=== PATIENT | female | born 1950 | race Caucasian/White ===

== ENCOUNTER 2024-10-03 06:59 | Emergency (ER) | payer OTHER, SELFPAY ==
[2024-10-03] VITALS (13 sets, daily range): BP systolic 138–209; BP diastolic 55–108; PULSE 60–104; RESP 15–97; TEMP 36.5; O2SAT 96–100; BMI 28.7
--- NOTE | 2024-10-03 07:18 | EDNOTE_ITS ---
ED General RME/HPI General Chief complaint: Dizziness Stated complaint: DIZZINESS Time Seen by Provider: 10/03/24 07:16 Arrival date/time: 10/03/24 06:59 RME / HPI RME / HPI narrative: See [facility] Related Data Allergies Allergy/AdvReac Type Severity Reaction Status Date / Time No Known Allergies Allergy Verified 10/03/24 07:18 Review of Systems Review of Systems Systems Reviewed: All systems reviewed, normal except as documented ED Exam Narrative Physical exam: Physical Exam GENERAL: AAOx3, lethargic HEENT: Dry mucosa. Eyes open, symmetrical, & clear CARDIO: Heart RRR, no obvious murmurs PULM: No noted coughing/dyspnea CTA B/L, no R/W/R GI: Abdomen soft, nondistended, no pain on palpation. BSx4 SKIN/MSK/EXT: No wounds/rashes/edema/amputations, no pain on palpation. Pedal pulses present B/L NEURO: AAOx3, no focal neuro deficits, able to move all 4 extremities Course Course Course Narrative: see [facility] Quality Measures none Orders Category Date Time Status Bedside Blood Glucose NOW Care 10/03/24 08:28 Completed Card Stripper NOW Care 10/03/24 08:28 Completed Continuous Pulse Oximetry NOW Care 10/03/24 08:28 Completed EKG (ED ONLY) *Do not use* NOW Care 10/03/24 08:28 Completed In and Out Catheter NEEDED Care 10/03/24 08:28 Completed Insert IV NOW Care 10/03/24 07:22 Completed MRI Screening NOW Care 10/03/24 08:29 Completed NIH Stroke Scale now Care 10/03/24 08:28 Completed NPO NOW Care 10/03/24 08:28 Completed Neuro Check Q30MIN Care 10/03/24 08:28 Completed Nurse Swallow Screen x1 Care 10/03/24 08:28 Completed Consult to Neurology / Tele-Neurology Routine Cons 10/03/24 08:28 Active Referral - Bath Attendant Stat Cons 10/03/24 08:41 Active Transfer to another facility [Transfer/Discharge] Stat Discharge 10/03/24 08:[address] angio stroke protocol Stat Exams 10/03/24 08:[address] head/brain wo con Stat Exams 10/03/24 07:23 Completed EKG (ED Only) Stat Exams 10/03/24 08:28 Draft MR stroke protocol brain wo con with MRA head and neck Exams 10/03/24 08:29 Ordered Stat CBC Stat Lab 10/03/24 08:15 Completed CMP [Comprehensive Metabolic Panel] Stat Lab 10/03/24 08:15 Completed Magnesium Stat Lab 10/03/24 08:15 Completed Partial Thromboplastin Time Stat Lab 10/03/24 08:15 Completed Prothrombin Time with INR Stat Lab 10/03/24 08:15 Completed Troponin I Stat Lab 10/03/24 08:15 Completed DiphenhydrAMINE INJ [Benadryl Inj] Med 10/03/24 07:21 Discontinued 25 mg IVP X1 ONE Magnesium Sulfate 4 GM Ivpb [Magnesium Sulfate Ivpb] Med 10/03/24 09:26 Discon tinued 4 gm in 50 ml IV X1 Magnesium Sulfate 4 GM Ivpb [Magnesium Sulfate Ivpb] Med 10/03/24 11:02 Discontinued 4 gm in 50 ml IV X1 Mannitol Inj 20% IVPB 500 ml Med 10/03/24 10:36 Discontinued Pre-Mixed [Pre-mixed Bag] 1 bag IV X1 Metoclopramide Inj [Reglan Inj] Med 10/03/24 07:21 Discontinued 10 mg IVP X1 ONE Morphine Inj Med 10/03/24 08:52 Discontinued 2 mg IVP X1 ONE Nicardipine/Ns 20Mg Ivpb [Cardene Ivpb] Med 10/03/24 08:19 Discontinued 20 mg in 200 ml IV 5 mg/hr Ondansetron Inj [Zofran Inj] Med 10/03/24 08:24 Discontinued 4 mg IVP Q4HR PRN Ringers Lactated 1000 ml [Lactated Ringers] 1,000 ml Med 10/03/24 07:23 Discontinued IV 999 mls/hr Tranexamic Acid 1,000 mg Ivpb [Tranexamic Acid Ivpb] Med 10/03/24 08:20 D iscontinued 1,000 mg in 100 ml IV PRNMRX1 fentaNYL INJ [Sublimaze Inj] Med 10/03/24 09:30 Discontinued 100 mcg IVP X1 ONE hydrALAZINE INJ [Apresoline Inj] Med 10/03/24 08:18 Discontinued 20 mg IVP X1 ONE Oxygen Delivery NOW RT 10/03/24 08:28 Completed Vital Signs Vital signs: Vital Signs Temperature 97.7 F 10/03/24 07:21 Pulse Rate 60 10/03/24 07:21 Respiratory Rate 20 10/03/24 07:21 Blood Pressure 209/82 H 10/03/24 07:21 Pulse Oximetry (%) 100 10/03/24 07:21 Oxygen Delivery Method Room Air 10/03/24 07:21 Discharge Plan Plan Patient Disposition: [facility] Pt Being Transferred to: [facility] Service Needed for Transfer: Neurosurgery Problem List Clinical Impression: Brain bleed Patient/Caregiver Discharge Instructions Print Language: Indian Stand Alone Forms: Iris Award Info., Patient Portal Info Letter MDM Narrative MDM hospital course: 73-year-old female with past medical history of hypothyroidism presents to the ED by EMS due to dizziness. Patient was apparently at the supermarket when she suddenly had spinning sensation and later started vomiting that has continued to worsen. She endorses a headache that came with the sudden dizziness. Per EMS when she tried to walk she seemed to walk drunk from dizziness but denies any alcohol use. No nystagmus noted, no focal deficits, able to move all 4 e xtremities with equal strength and sensation all 4 extremities, no evidence of cerebellar symptoms. She denies fever, chills, shortness of breath, chest pain, palpitations. 0728: Ct head ordered, labs ordered, migraine cocktail ordered, 1L bolus 0820: Received call by Radiology with findings from Head CT: Abnormal hemorrhage in the third ventricle, aqueduct and fourth ventricle, TXA given, started on nicardipine drip for SBP < 140, hydralazine 20mg IVx1, Stroke alert was called 0842: teleneurology recommends stat transfer for neurosurgical evaluation, transfer process initiated. 1010: Transfer nurse spoke to [facility] and they declined the patient, recommended tertiary care center. 1035: Mannitol 1g/kg givenx1 1036: Patient accepted at [facility] at neurocritical care unit. Pending transfer out via [facility] 1120: Patient departed Clinical Information Provided by patient and EMS Medical Records Reviewed [facility] Medication Administration(s) Medication Administration History Discontinued Medications Diphenhydramine HCl (Diphenhydramine Inj 50 Mg/Ml Vial) 25 mg IVP X1 ONE Stop: 10/03/24 07:22 Last Admin: 10/03/24 07:40 Dose: 25 mg Documented By: HAYLIE Fentanyl Citrate (Fentanyl Cit Inj 50 Mcg/Ml Amp 2ml) 100 mcg IVP X1 ONE Stop: 10/03/24 09:31 Last Admin: 10/03/24 09:38 Dose: 100 mcg Documented By: HAYLIE Hydralazine HCl (Hydralazine Inj 20 Mg/Ml Vial) 20 mg IVP X1 ONE Stop: 10/03/24 08:19 Last Admin: 10/03/24 08:24 Dose: 20 mg Documented By: HAYLIE Lactated Ringer's (Lactated Ringers) 1,000 mls @ 999 mls/hr IV .Q1H1M ONE Stop: 10/03/24 08:23 Last Infusion: 10/03/24 08:50 Dose: Infused Documented By: Admin: 10/03/24 07:41 Dose: 999 mls/hr Documented By: HAYLIE Nicardipine/Sodium Chloride (Cardene Ivpb) 20 mg in 200 mls @ 50 mls/hr IV .Q4H PRN; Protocol PRN Reason: PER PROTOCOL Stop: 11/02/24 08:18 Last Titration: 10/03/24 10:40 Dose: 0 mg/hr, 0 mls/hr Documented By: Titration: 10/03/24 10:35 Dose: 3 mg/hr, 30 mls/hr Documented By: Titration: 10/03/24 10:30 Dose: 3 mg/hr, 30 mls/hr Documented By: Titration: 10/03/24 10:25 Dose: 5.5 mg/hr, 55 mls/hr Documented By: Titration: 10/03/24 10:20 Dose: 5.5 mg/hr, 55 mls/hr Documented By: Titration: 10/03/24 10:16 Dose: 5.5 mg/hr, 55 mls/hr Documented By: Titration: 10/03/24 10:10 Dose: 5.5 mg/hr, 55 mls/hr Documented By: Titration: 10/03/24 10:05 Dose: 5.5 mg/hr, 55 mls/hr Documented By: Titration: 10/03/24 10:00 Dose: 3 mg/hr, 30 mls/hr Documented By: Titration: 10/03/24 09:55 Dose: 3 mg/hr, 30 mls/hr Documented By: Titration: 10/03/24 09:50 Dose: 5.5 mg/hr, 55 mls/hr Documented By: Titration: 10/03/24 09:45 Dose: 5.5 mg/hr, 55 mls/hr Documented By: Titration: 10/03/24 09:40 Dose: 5.5 mg/hr, 55 mls/hr Documented By: Titration: 10/03/24 09:35 Dose: 5.5 mg/hr, 55 mls/hr Documented By: Titration: 10/03/24 09:16 Dose: 3 mg/hr, 30 mls/hr Documented By: Titration: 10/03/24 09:10 Dose: 10 mg/hr, 100 mls/hr Documented By: Titration: 10/03/24 09:04 Dose: 10 mg/hr, 100 mls/hr Documented By: Titration: 10/03/24 08:55 Dose: 7.5 mg/hr, 75 mls/hr Documented By: Admin: 10/03/24 08:50 Dose: 5 mg/hr, 50 mls/hr Documented By: HAYLIE Tranexamic Acid (Tranexamic Acid Ivpb) 1,000 mg in 100 mls @ 200 mls/hr IV PRNMRX1 PRN PRN Reason: BLEEDING Last Infusion: 10/03/24 09:35 Dose: Infused Documented By: Admin: 10/03/24 09:04 Dose: 200 mls/hr Documented By: HAYLIE Magnesium Sulfate (Magnesium Sulfate Ivpb) 4 gm in 50 mls @ 12.5 mls/hr IV X1 ONE Stop: 10/03/24 13:25 Last Infusion: 10/03/24 10:55 Dose: 0 mls/hr Documented By: Admin: 10/03/24 09:33 Dose: 12.5 mls/hr Documented By: HAYLIE Mannitol 500 ml/ IV (Miscellaneous Supplies) 500 mls @ 666.667 mls/hr IV X1 ONE Stop: 10/03/24 10:37 Last Infusion: 10/03/24 10:50 Dose: 0 mls/hr Documented By: Admin: 10/03/24 10:50 Dose: 666.667 mls/hr Documented By: HAYLIE Magnesium Sulfate (Magnesium Sulfate Ivpb) 4 gm in 50 mls @ 12.5 mls/hr IV X1 ONE Stop: 10/03/24 15:01 Last Infusion: 10/03/24 11:09 Dose: 0 mls/hr Documented By: Admin: 10/03/24 11:08 Dose: 12.5 mls/hr Documented By: HAYLIE Metoclopramide HCl (Metoclopramide Inj 5 Mg/Ml Vial 2 Ml) 10 mg IVP X1 ONE; Protocol Stop: 10/03/24 07:22 Last Admin: 10/03/24 07:40 Dose: 10 mg Documented By: Admin: 10/03/24 07:32 Dose: 10 mg Documented By: HAYLIE Morphine Sulfate (Morphine Sulf Inj 10 Mg/Ml Vial) 2 mg IVP X1 ONE Stop: 10/03/24 08:53 Last Admin: 10/03/24 09:08 Dose: 2 mg Documented By: HAYLIE Ondansetron HCl (Ondansetron Inj 2 Mg/Ml Inj 2 Ml) 4 mg IVP Q4HR PRN PRN Reason: NAUSEA OR VOMITING Stop: 11/02/24 08:23 Last Admin: 10/03/24 08:53 Dose: 4 mg Documented By: HAYLIE
--- NOTE | 2024-10-03 07:23 | XR_ITS ---
Examination: CT brain head without contrast. 2-D sagittal coronal reconstructions Date and time of exam:October 03, 2024 0759 hours INDICATIONS: Dizziness nausea beginning this morning CTDI: vol (mGy):50 DLP: (mGycm):1024 Technique: Multiple CT axial sections of the brain have been obtained, 5 mm slice thickness. Contrast has not been administered. 2-D sagittal, coronal reconstructions have been obtained Low dose protocols were performed. One or more of the following dose reduction techniques were used; automated exposure control, adjustment of the mA and/or KV according to patient size, use of iterative reconstruction technique. Findings: Hyperdensity consistent with hemorrhage in the third ventricle aqueduct and fourth ventricle Ventricles are not enlarged No mass effect upon the ventricular system Cranial vault intact IMPRESSION: Abnormal hemorrhage in the third ventricle, aqueduct and fourth ventricle, clinical correlation is advised Recommend brain MRI MRA without contrast follow-up
[2024-10-03] MEDS: METOCLOPRAMIDE INJ 5 MG/ML VIAL 2 ML 10 MG IVP ×2 (07:32→07:40)
[2024-10-03] MEDS: RINGERS LACTATED 1000 ML 1,000 ML 999 ML IV (07:41)
[2024-10-03] MEDS: hydrALAZINE INJ 20 MG/ML VIAL IVP (08:24)
--- NOTE | 2024-10-03 08:28 | EKG_ITS ---
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
--- NOTE | 2024-10-03 08:28 | XR_ITS ---
Examination: CTA carotids with intravenous contrast CTA brain, head with intravenous contrast. 2-D sagittal, coronal reconstructions. 3-D reconstructions. Exam date and time: October 03, 2024 0833 hours INDICATIONS: Stroke alert, onset dizziness nausea beginning this morning, hemorrhage in the third ventricle, aqueduct and fourth ventricle on CT brain scan 0759 hours this morning CTDI: vol (mGy) 11.5 DLP: (mGycm) 143 Technique: Multiple CTA axial brain, head carotid images post intravenous contrast injection 70 cc, [id number]. 2-D sagittal, coronal reconstructions. 3-D reconstructions, 3-D post processing including vascular maximum intensity projection images. Low dose protocols were performed. One or more of the following dose reduction techniques were used; automated exposure control, adjustment of the mA and/or KV according to patient size, use of iterative reconstruction technique. Findings: 4 mm right thyroid nodule No significant common carotid carotid bifurcation or internal carotid artery stenoses Codominant vertebral arteries with no critical vertebral artery stenoses in the neck Intracranial vertebral arteries basilar artery and posterior cerebral branches fill Juxtasellar supraclinoid portions internal carotid arteries are intact No large vessel occlusions involving M1 segments middle cerebral arteries or middle cerebral artery trifurcation vessels as well as anterior cerebral arteries No cerebral aneurysm depicted IMPRESSION: 4 mm right thyroid nodule No significant arterial stenoses in the neck No cerebral large vessel arterial occlusions or thrombus, now cerebral aneurysm identified
[2024-10-03 08:31] LABS: Basophils # (Auto) 0.0 Thou/mm3 (0.0-0.2); Basophils % (Auto) 1 % (0-2.5); Eosinophils # (Auto) 0.0 Thou/mm3 (0.0-0.5); Eosinophils % (Auto) 0 % (0-10); Hematocrit 39.6 % (36.0-46.0); Hemoglobin 13.1 g/dL (12.0-16.0); Immature Granulocytes Auto 0.03 Thou/mm3 (0.00-0.00); Lymphocytes # (Auto) 1.4 Thou/mm3 (1.0-4.8); Lymphocytes % (Auto) 21 % (10-50); Mean Corpuscular HGB Conc 33.1 g/dl (31.0-37.0); Mean Corpuscular Hemoglobin 29.2 pg (25.0-35.0); Mean Corpuscular Volume 88 fL (80-100); Monocytes # (Auto) 0.5 Thou/mm3 (0.0-0.8); Monocytes % (Auto) 8 % (0-12); Neutrophils # (Auto) 4.4 Thou/mm3 (1.8-7.7); Neutrophils % (Auto) 70 % (37-80); Nucleated Red Blood Cell # 0.00 Thou/mm3 (0.00-0.00); Nucleated Red Blood Cell % 0 /100 WBC (0); Platelet Count 218 Thou/mm3 (140-440); RDW Standard Deviation 43.8 fL (36.4-46.3); Red Blood Count 4.48 Miln/mm3 (4.00-5.20); White Blood Count 6.4 Thou/mm3 (3.6-11.0)
[2024-10-03 08:42] LABS: Alanine Aminotransferase 19 U/L (10-49); Albumin, Serum 4.5 gm/dL (3.4-4.8); Albumin/Globulin Ratio 2.0 (1.2-2.2); Alkaline Phosphatase 88 U/L (46-116); Anion Gap 10 (7-16); Aspartate Amino Transferase 34 U/L (0-34); BUN/Creatinine Ratio 11 Ratio (12-20); Bilirubin,Total 0.7 mg/dL (0.3-1.2); Blood Urea Nitrogen 9 mg/dL (9-23); Calcium 8.8 mg/dL (8.3-10.6); Calcium (Corrected) 8.8 mg/dL (8.5-10.1); Carbon Dioxide 23.6 mMol/L (20.0-31.0); Chloride 109 mMol/L (98-107); Creatinine (Component) 0.8 mg/dL (0.6-1.3); Estimated Creatinine Clearance 67.1 mL/min (>60); Globulin 2.2 gm/dL (2.3-3.5); Glucose 108 mg/dL (74-106); Osmolality,Calculated 284 (275-295); Potassium 3.6 mMol/L (3.4-5.1); Sodium 143 mMol/L (136-145); Total Protein 6.7 gm/dL (5.7-8.2); eGFR > 60 See Note
[2024-10-03] MEDS: NICARDIPINE/NS 20MG IVPB 20 MG/200 ML BAG 50 MG IV (08:50)
[2024-10-03] MEDS: ONDANSETRON INJ 2 MG/ML INJ 2 ML 4 MG IVP (08:53)
[2024-10-03] MEDS: TRANEXAMIC ACID 1,000 MG IVPB 1,000 MG/100 ML BAG 200 MG IV (09:04)
[2024-10-03] MEDS: MORPHINE SULF INJ 10 MG/ML VIAL 2 MG IVP (09:08)
[2024-10-03 09:09] LABS: INR 1.0 (0.9-1.3); Partial Thromboplastin Time 21.7 Seconds (22.0-36.0); Prothrombin Time 10.9 Seconds (9.0-12.2)
[2024-10-03 09:12] LABS: Magnesium 1.5 mg/dL (1.6-2.6); Troponin I < 0.020 ng/mL (0.0-0.045)
[2024-10-03] MEDS: Magnesium Sulfate 4 GM Ivpb 4 GM/50 ML BAG IV ×2 (09:33→11:08)
[2024-10-03] MEDS: fentaNYL CIT INJ 50 mCg/ML AMP 2ML 100 MCG IVP (09:38)
--- NOTE | 2024-10-03 09:47 | ESCONSULT_ITS ---
Tele Neuro Consultation Consultation Date 10/03/24 Most Recent Vital Signs Last Vital Signs Temp 97.7 F 10/03/24 07:21 Pulse 84 10/03/24 09:40 Resp 22 H 10/03/24 09:40 BP 141/57 H 10/03/24 09:40 Pulse Ox 99 10/03/24 09:40 O2 Del Method Room Air 10/03/24 07:21 Laboratory-Coagulation Panel PT 10.9 Seconds (9.0-12.2) 10/03/24 08:15 INR 1.0 (0.9-1.3) 10/03/24 08:15 APTT 21.7 Seconds (22.0-36.0) L 10/03/24 08:15 Consultation Narrative [facility] Tele[facility]rology [facility] Patient Name:???Ny Reynoso Date of :???1950 Date of Service:???10/03/2024 08:27:35 Diagnosis:?I69.198 - Other sequelae of nontraumatic intracerebral hemorrhage Impression: Pt with no significant pmhx presenting with dizziness LKN 5:00 am. NIHSS of [address] concerning for left cerebellar hemorrhage with extension into the 4th ventricle and aqueduct. CTA w/o aneurysm or LVO or venous malformation. ICH score of 2. Recommend urgent transfer to facility with neurosurgery capability. Patient will need ICU monitoring and repeat scan in 6 hours, sooner if changes on neuro exam. Etiology of bleed looks like potentially hypertensive Recommendations: 1. Neurosurgey consult 2. SBP less than 140 3. Keep the head of the bed elevated 30 degrees 4. ICU level of care Recommendation: Nursing Recommendations: ? Telemetry, IV Fluids?Avoid dextrose containing fluids, Maintain euglycemia ? Head of bed 30 degrees ? Neuro checks q1-2?hrs?during ICU stay ? keep BP less than 140/90's with goal of 130/80s Disposition: ? Neurology will Follow Metrics: Last Known Well: 10/03/2024 05:00:59 Dispatch Time: 10/03/2024 08:27:35 Arrival Time: 10/03/2024 08:27:30 Initial Response Time: 10/03/2024 08:30:31Symptoms: dizziness, brain bleed on . Initial patient interaction: 10/03/2024 08:44:40 NIHSS Assessment Completed: 10/03/2024 08:47:13Patient is not a candidate for Thrombolytic. Thrombolytic Medical Decision: 10/03/2024 08:47:15Patient was not deemed candidate for Thrombolytic because of following reasons: Current intracranial hemorrhage . CT Head: I personally reviewed all the CT images that were available to me and it showed: intracerebral hemorrhage, left cerebellar with ventricular extension Primary Provider Notified of Diagnostic Impression and Management Plan on: 10/03/2024 08:58:28 History of Present Illness:Patient is a 73 year old Female. Patient was brought by EMS for symptoms of dizziness, brain bleed on . Pt with no significant pmhx presenting with dizziness LKN 5:00 am. Pt was completely fine this AM and then started experiencing diziness acutely, nausea, vomiting and severe headache in the back of head. No prior similar symptoms. No prior hx of CVA. ? Past Medical History: ?There is no history of Hypertension Medications: No Anticoagulant use? No Antiplatelet use Reviewed EMR for current medications Allergies:? Reviewed Social History: Patient Is: Smoking: No Alcohol Use: No Drug Use: No Family History: There is no family history of premature cerebrovascular disease pertinent to this consultation ROS : 14 Points Review of Systems was performed and was negative except mentioned in HPI. Past Surgical History: There Is No Surgical History Contributory To Today?s Visit ? Examination: BP(189/70),?Pulse(68),?Blood Glucose(102) 1A: Level of Consciousness - Arouses to minor stimulation?+ 1 1B: Ask Month and Age - Both Questions Right?+ 0 1C: Blink Eyes & Squeeze Hands - Performs Both Tasks?+ 0 2: Test Horizontal Extraocular Movements - Normal?+ 0 3: Test Visual Mcgowan - No Visual Loss?+ 0 4: Test Facial Palsy (Use Grimace if Obtunded) - Normal symmetry?+ 0 5A: Test Left Arm Motor Drift - No Drift for 10 Seconds?+ 0 5B: Test Right Arm Motor Drift - No Drift for 10 Seconds?+ 0 6A: Test Left Leg Motor Drift - No Drift for 5 Seconds?+ 0 6B: Test Right Leg Motor Drift - No Drift for 5 Seconds?+ 0 7: Test Limb Ataxia (FNF/Heel-Edmond) - No Ataxia?+ 0 8: Test Sensation - Normal; No sensory loss?+ 0 9: Test Language/Aphasia - Normal; No aphasia?+ 0 10: Test Dysarthria - Normal?+ 0 11: Test Extinction/Inattention - No abnormality?+ 0 NIHSS Score:?1 ICH Score: 2 Efren Coma Score:13-15 (0) Age >= 80:No (0) ICH volume >= 30mL:No (0) Intraventricular hemorrhage:Yes (+1) Infratentorial origin of hemorrhage:Yes (+1) Pre-Morbid Modified Sonny Scale:1 Points = No significant disability despite symptoms; able to carry out all usual duties and activities This consult was conducted in real time using interactive audio and video technology. Patient was informed of the technology being used for this visit and agreed to proceed. Patient located in hospital and provider located at home/office setting. Due to the immediate potential for life-threatening deterioration due to underlying acute neurologic illness, I spent 50 minutes providing critical care. This time includes time for face to face visit via telemedicine, review of medical records, imaging studies and discussion of findings with providers, the patient and/or family. Dr Richa Shah [facility] For Inpatient follow-up with [facility] physician please call [facility] at . As we are not an outpatient service for any post hospital discharge needs please contact the hospital for assistance. If you have any questions for the [facility] physicians or need to reconsult for clinical or diagnostic changes please contact us via [facility] at . ?
--- NOTE | 2024-10-03 09:53 | PC.CC ---
Addendum entered by Guy Mccall RN 10/03/24 10:59: 1058- Discharge packet handed off to JENNIFER Vogel ER CN, [facility] is on site and ready to transfer patient to [facility]. Addendum entered by Guy Mccall RN 10/03/24 10:37: 1030-Patient accepted to [facility] by Dr. Ribeiro, ED to ED, number for report [phone], updated ER CN. Connected [facility] to Dr. Collazo for recommendations by their neurosurgeon. Addendum entered by Guy Mccall RN 10/03/24 10:22: 1010- Received call from [facility] JENNIFER Santamaria, patient was declined by Neurosurgeon Dr. Muhammad, patient may have bleed coming from basiliary tip, they are not capable of managing this and are recommending transfer to tertiary care center. Updated Dr. Hdez in ER, he will update Dr. Collazo. Search expanded to [facility] and [facility]. Original Note: 0930- Transfer request initiated for neurosurgery evaluation, transfer packet created and images placed on CD. Call to [facility] spoke with JENNIFER Crisostomo in the TC and provided clinicals and connected her with Dr. Collazo in ER, pending review by their team. Spoke with JENNIFER Santamaria in TC at [facility], provided clinicals and contact information for ER MD, pending review by their team at this time.
[2024-10-03] MEDS: MANNITOL 20% IV (10:50)
[2024-10-03] MEDS: PRE MIXED IV (10:50)
--- NOTE | 2024-10-03 10:57 | PC.NURSE ---
REPORT GIVEN TO KOKI FROM [facility] AND CARE TRANSFERRED OVER TO THEM.
--- NOTE | 2024-10-03 11:17 | PC.NURSE ---
CALLED [facility] AND SPOKE TO NETTA TO WHOM I GAVE REPORT TOO.
== END 2024-10-03 11:21 | disposition short-term general hospital (02) ==
PROVIDERS: Student in an Organized Health Care Education/Training Program; Emergency Provider Emergency Medicine
DX: I61.9 Nontraumatic intracerebral hemorrhage, unspecified (principal); R94.31 Abnormal electrocardiogram [ECG] [EKG]; Z75.1 Person awaiting admission to adequate facility elsewhere
CPT/HCPCS: 36415; 70450; 70496; 70498; 80053; 80307; 81001; 83735; 84484; 85025; 85610; 85730; 87086; 96361; 96365; 96366; 96375; 99285; A4649; J0360; J1200; J2270; J2404; J2405; J2765; J3010; J3475; J3490; J7120; Q9967